=== PATIENT | female | born 1950 | race Caucasian/White ===

== ENCOUNTER → 2016-12-20 | Outpatient (CLI) | payer BC ==
[~2016-12-20] MED LIST: ASCO1CAP3 PO; ASPI81TA28 PO; ATEN50TA PO; CHOL20009 PO; CHOLTAB3 PO; COEN100C7 PO; FLUC200T PO; GABA1CAP PO; GINK60TA2 PO; LEVO75TA5 PO; MIRT15TA3 PO; MULT-916 PO; OMEG10007 PO; OMEP20CA9 PO; SIMV20TA2 PO; TNR50 PO; ZNTT/150 PO
--- NOTE | 2016-12-20 13:24 | MAMMOGRAPHY REPORT ---
UNILATERAL LEFT DIGITAL DIAGNOSTIC MAMMOGRAM TOMOSYNTHESIS WITH CAD AND TARGETED LEFT ULTRASOUND: CLINICAL HISTORY: 66-year-old 1 presents for follow-up of a probably benign cystic-appearing mass in the 5:30 left breast. History of previous left breast surgery and atypical ductal hyperplasia. TECHNIQUE: Left CC and MLO 2-D digital and tomosynthesis images, spot magnification left CC and ML views were obtained. Current study was also evaluated with a Computer Aided Detection (CAD) system. COMPARISON: Comparison is made to exams dated: 06/02/2016 ultrasound, 06/02/2016 mammogram, 05/24/2016 m ammogram, 12/31/2014 mammogram, 12/25/2013 mammogram, and 07/19/2012 mammogram - [facility] enter. BREAST COMPOSITION: There are scattered areas of fibroglandular density in the left breast. FINDINGS: A linear scar marker overlies the upper inner left breast. There are a few benign rim emily cifications. The 5.6 mm lobulated mass in the anterior left breast is no longer clearly identified. No obvious new mass or architectural distortion is identified. However, there are possible new mi crocalcifications in the upper outer quadrant for which additional spot magnification views were obt ained. On the spot magnification views, there are 2 adjacent clusters of similar appearing faint amorphous microcalcifications in the upper outer far posterior left breast. The larger posterior cluster bill ures 6.3 mm and the smaller anterior cluster measures approximately 3 mm. These are not definitely seen on prior mammograms and are therefore indeterminate. Definitive characterization with a stereo tactic guided biopsy is recommended. Targeted ultrasound was performed in the area of previously identified complicated cyst in the 5:30 left breast, as well as in an area of palpable lump pointed out by the patient (12:00 and 11:00 left breast, 5 cm from the nipple). In the area of palpable lump, normal fibroglandular tissue is seen without a discrete solid or cystic mass. In the 5:30 left breast, 2 cm from the nipple, a complicat ed cyst is no longer identified. However there is an ill-defined hypoechoic lesion that is differen t in texture from the adjacent fat lobules. No significant increased vascularity or definite ceasar ectural distortion. It measures approximately 6.9 x 4.7 mm. Although this could represent focal fi brocystic changes, it is indeterminate and definitive characterization with ultrasound guided core b iopsy is recommended. IMPRESSION: ACR BI-RADS CATEGORY 4B: INTERMEDIATE SUSPICION FOR MALIGNANCY, TARGETED ULTRASOUND ACR BI-RADS CATEGORY 4B: INTERMEDIATE SUSPICION FOR MALIGNANCY 1. Left breast stereotactic guided biopsy is recommended for new clustered faint amorphous microcal cifications in the upper outer posterior breast. 2. Ultrasound-guided core needle biopsy is recommended in the 5:30 left breast for an ill-defined h ypoechoic 6.9 mm mass seen on ultrasound. These results and recommendations were discussed with the patient at the time of the exam. She tent atively scheduled the left breast biopsies prior to leaving our department. Approximately 10% of breast cancers are not detected with mammography. A negative mammographic repor t should not delay biopsy if a clinically suggestive mass is present. Yolanda Hummel M.D. ay/:12/20/2016 12:42:58 Framing Carpenter: Mary Kim, [facility] letter sent: Abnormal 4/5 BI-RADS Code: ACR BI-RADS Category 4B: Intermediate Suspicion For Malignancy Ultrasound BI-RADS: AC R BI-RADS Category 4B: Intermediate Suspicion For Malignancy
== END | disposition home or self-care (01) ==
LOC: C.MAMM 09:22
PROVIDERS: ATTEND Obstetrics & Gynecology
DX: N63 Unspecified lump in breast (principal); R92.0 Mammographic microcalcification found on diagnostic imaging of breast

== ENCOUNTER → 2017-01-03 | Outpatient (CLI) | payer BC ==
--- NOTE | 2017-01-03 13:42 | Discharge Instructions ---
Discharge Instructions Procedure Procedure Date: Jan 03, 2017. Reason for visit: Left Calcs/Us Core Left Mass. Discharge Discharge Date: Jan 03, 2017. Discharge Diagnosis: post left breast stereotactic guided and ultrasound guided biopsies Instructions Activity Recommendations: Additional Limitations (see below) Return to School/Work: no limitations Recommended Home Diet: No Limitations Provider Instructions: ACTIVITY RECOMMENDATIONS: * No lifting, pushing, pulling or exercising the affected side for three days. RETURN TO SCHOOL/WORK: * You may return to work/school after the procedure, but do not perform any strenuous activities for 24 to 48 hours. MEDICATIONS: * Tylenol (two 325 mg) every four to six hours if needed for mild pain (if not allergic to Tylenol). DIET: * Resume previous diet. SPECIAL CARE INSTRUCTIONS: * Keep biopsy site dry for 24 hours. May shower after 24 hours, but do not soak (bathe) incision. * May remove Tegaderm (plastic patch) tomorrow AFTER showering. * Leave the steri-strips on for one week. Allow the steri-strips to fall off by themselves. If not off after one week, you may remove them. You may place a Bandaid crosswise over the strips, if desired. * Apply ice 10 minutes on and 10 minutes off as needed. * Wear a bra at bedtime to sleep more comfortably for 2-3 days. * Your referring physician should have the results after approximately 5 to 7 business days. * Call for unusual bleeding, fever, drainage, etc or if you have any questions call [phone] during normal business hours or after hours call Dr Hummel, . FOLLOW UP VISIT: Follow-up with Referring Physician as scheduled. Allergies Coded Allergies: Carbamazepine (Verified Allergy, Mild, rash, 11/17/15) Phenytoin (Verified Allergy, Mild, RASH, 11/17/15) Codeine (Verified Allergy, Unknown, ITCHY, 11/17/15) Iodine (Verified Allergy, Unknown, RASH, 11/17/15) Leda Ovalle Recommendations: Call your doctor if: * Temperature above 101 degrees * Pain not relieved by pain medicine ordered * There is increased drainage or redness from any incision * You have any unanswered questions or concerns. Your Doctors Instructions noted above were prepared by provider Yolanda Hummel. Patient Signature Section: Patient Instructions Signature Page Randy Tripp Patient (or Guardian) Signature/Date: I have read and understand the instructions given to me by my caregivers. Caregiver/RN/Doctor Signature/Date: The above-named patient and/or guardian has received patient instructions on this date. + Original Patient Signature Page (only) stays with chart. Please make copy for patient.
--- NOTE | 2017-01-03 16:03 | MAMMOGRAPHY REPORT ---
MULTIPLE STEREOTACTIC GUIDED BIOPSIES LEFT BREAST: 01/03/2017 CLINICAL HISTORY: Faint amorphous clustered microcalcifications in the upper outer posterior left br east. Ill-defined hypoechoic lesion in the 5:30 left breast on ultrasound. Patient presented for l eft breast stereotactic guided biopsy and ultrasound-guided core biopsy. Also evaluate the right br east for any possible microcalcifications. COMPARISON: Comparison is made to exams dated: 12/20/2016 mammogram, 06/02/2016 ultrasound, 12/20/2016 ultrasound, 06/02/2016 mammogram, 12/31/2014 mammogram, and 12/25/2013 mammogram - [facility]. PATIENT CONSENT: After explaining the risks, benefits and alternatives of both the stereotactic guid ed biopsy procedure and ultrasound-guided core needle biopsy procedure to the patient, informed cons ent was obtained both verbally and in writing. Specific risks include: Bleeding, infection, punctur e of adjacent structure, nontarget biopsy, sampling error, metal allergy and medication reaction. PROCEDURE DESCRIPTION: A time-out was performed and the left breast was confirmed as the site of bio psy. The patient was placed prone on the stereotactic biopsy table and the breast was placed in CC f rom above compression. A hypo dipper image was obtained that demonstrated the clustered microcalcification s in question. They are amenable to sterotactic biopsy. Then +15 and -15 stereo pair images were obtained. The calcifications were targeted utilizing the coordinates obtained by the computer. The skin was prepped with ChloraPrep. 1% buffered lidocaine with and without epinipherine was administe red as local anesthesia. A small skin incision was made. Through the incision, the needle was inser jenny to the depth determined by the computer. 10 samples were obtained using a [employer] 9-ga uge vacuum-assisted biopsy device. The specimen radiograph demonstrated several client support representative micro calcifications, therefore, a metallic marker was placed at the biopsy site. There was no immediate c omplication. Hemostasis was achieved after several minutes of manual compression. The samples were sent to pathology in an appropriately labeled container, with the specimen containing the majority o f the microcalcifications out and placed into a different container labeled with calcifica tions. Then the patient was brought into the ultrasound room and placed in the supine position. The 5:30 a xis of the left breast was reevaluated with ultrasound, and the ill-defined hypoechoic lesion seen o n the previous exam dated 12/20/2016 was again identified. Additional ChloraPrep was used to cleans e the skin of the inferior left breast. 1% buffered lidocaine with and without epinephrine was admi nistered. A small incision was made in the skin. Through the incision, 3 samples were obtained usi ng a 14-gauge achieve biopsy device. A metallic marker was placed at the biopsy site. Hemostasis w as achieved after approximately 10 minutes of manual compression. The samples were sent to the path ology department in an appropriately labeled container. Postprocedure left CC and MLO 2-D digital and tomosynthesis images were obtained. There is a dumbbe ll-shaped metallic biopsy marker in the upper outer posterior left breast. A large, approximately 4 x 6 cm hematoma is identified at the site of the stereotactic biopsy. No significant hematoma is s een near the ribbon-shaped metallic biopsy marker denoting the site of the ultrasound guided core bi opsy. Additional manual compression was placed in the upper outer quadrant of the breast in the are a of hematoma. The patient was also wrapped with an Stanley bandage as a pressure dressing prior to shyam ving our department. She was instructed not to take aspirin for approximately 2 days. Right CC and MLO 2-D digital and tomosynthesis images were obtained. There are a few benign calcifi cations. However, no new suspicious clustered microcalcifications, new suspicious mass or edi architect ural distortion is seen. Overall, the parenchymal pattern is unchanged compared to prior mammograms . IMPRESSION: STEREOTACTIC GUIDED BIOPSY 1. Status post left breast stereotactic guided biopsy in the upper outer far posterior breast. 2. Status post ultrasound-guided core needle biopsy in the 5:30 left breast. 3. Stable mammographic appearance of the right breast, without mammographic evidence of malignancy. The patient will receive notification of the biopsy results from her referring physician. Yolanda Hummel M.D. ay/:01/03/2017 14:55:39 Laboratory Manager: Mary Kim, [facility]
--- NOTE | 2017-01-03 16:03 | MAMMOGRAPHY REPORT ---
BILATERAL DIGITAL DIAGNOSTIC MAMMOGRAM TOMOSYNTHESIS: 01/03/2017 CLINICAL HISTORY: Status post left breast stereotactic guided biopsy and ultrasound-guided core biop sy. Evaluate for possible microcalcifications in the right breast. Please refer to the report from left breast stereotactic guided biopsy performed at the same time fo r full detail. IMPRESSION: POST PROCEDURE IMAGING FOR MARKER PLACEMENT Please refer to the report from left breast stereotactic guided biopsy performed at the same time fo r full detail. Approximately 10% of breast cancers are not detected with mammography. A negative mammographic repor t should not delay biopsy if a clinically suggestive mass is present. Yolanda Hummel M.D. ay/:01/03/2017 14:49:03 Lot Attendant: Mary Kim, [facility] BI-RADS Code: Post Procedure Imaging For Marker Placement
--- NOTE | 2017-01-03 16:03 | MAMMOGRAPHY REPORT ---
ULTRASOUND GUIDED BIOPSY: 01/03/2017 CLINICAL HISTORY: Status post left breast stereotactic guided biopsy in the upper outer quadrant, an d ultrasound guided core needle biopsy in the 5:30 axis. Please refer to the report from left breast stereotactic guided biopsy performed at the same time fo r full detail. IMPRESSION: ULTRASOUND GUIDED BIOPSY Please refer to the report from left breast stereotactic guided biopsy performed at the same time fo r full detail. Yolanda Hummel M.D. ay/:01/03/2017 14:56:30 Guillotine Trimmer: Mary Kim, [facility]
== END | disposition home or self-care (01) ==
LOC: C.MAMM 12:27
PROVIDERS: ATTEND Obstetrics & Gynecology
DX: N60.12 Diffuse cystic mastopathy of left breast (principal); R92.0 Mammographic microcalcification found on diagnostic imaging of breast

== ENCOUNTER → 2017-01-27 | Outpatient (CLI) | payer BC ==
[2017-01-27 12:09] LABS: BASO % 0.4 %; BASO ABS # 0.03 K/uL (0-0.2); COMPLETE YES; EOS % 0.6 %; HEMATOCRIT 36.3 % (37-47); IG% 0.1 %; LYMPH % 29.2 %; LYMPH ABS # 2.05 K/uL (1.2-3.4); MEAN CORPUSCULAR HEMOGLOBIN 30.8 pg (25-34); MEAN CORPUSCULAR HGB CONC 33.9 g/dl (32-36); MONO % 9.8 %; NEUT % 59.9 %; PLATELET COUNT 192 K/uL (130-400); RED BLOOD COUNT 3.99 M/uL (4.2-5.4); WHITE BLOOD COUNT 7.01 K/uL (4.8-10.8)
[2017-01-27 13:01] LABS: BLOOD UREA NITROGEN 22 mg/dl (7-18); BUN/CREATININE RATIO 31.4 (10-20); CALCIUM 9.1 mg/dl (8.5-10.1); CARBON DIOXIDE 29 mmol/L (21-32); CHLORIDE 106 mmol/L (98-107); CREATININE 0.69 mg/dl (0.60-1.20); GLUCOSE 124 mg/dl (70-99); POTASSIUM 3.8 mmol/L (3.5-5.1); SODIUM 142 mmol/L (136-145)
== END | disposition home or self-care (01) ==
LOC: C.LAB 11:17
PROVIDERS: ATTEND Orthopaedic Surgery
DX: M75.112 Incomplete rotator cuff tear or rupture of left shoulder, not specified as traumatic (principal)

== ENCOUNTER → 2017-02-16 | Day surgery (SDC) | payer BC ==
[2017-02-01 14:27] VITALS: Ht 154.9 cm; Wt 45.5 kg
[~2017-02-16] VITALS: Ht 154.9 cm; Wt 45.5 kg
[~2017-02-16] MED LIST changes: +ATROPINE SULFATE 0.1 MG/ML 5ML SYR IV PRN; +BUPIVACAINE/EPINEPHRINE 0.25% 1:200,000 30 ML VIAL ONE; +CEFAZOLIN 1000MG/55 ML D5W IV SCH; -CHOLTAB3 PO; +DEXAMETHASONE SOD INJ 4 MG/ML VIAL IV PRN; +DEXAMETHASONE SOD INJ 4 MG/ML VIAL ONE; +EpHEDrine SULFATE INJ 50 MG/ML AMP IV PRN; +EpINEphrine INJ 1MG/ML AMP 1 MG/ML AMP ONE; +FENTANYL CITRATE INJ 50 MCG/1 ML 2 ML VIAL IV PRN; +FENTANYL CITRATE INJ 50 MCG/1 ML 2 ML VIAL ONE; +GLYCOPYRROLATE INJ 0.2 MG/ML VIAL ONE; +KETOROLAC TROMETHAMINE 15 MG/ML VIAL IV. PRN; +KETOROLAC TROMETHAMINE 30 MG/ML VIAL IV. PRN; +LABETALOL HCL IV 5 MG/ML 20ML IV PRN; +LACTATED RINGER'S 1000ML 1,000 ML IV SCH; +LIDOCAINE HCL 1% MPF 2 ML VIAL ONE; +LIDOCAINE HCL 2% 2 ML VIAL (20MG/ML) ONE; +METOCLOPRAMIDE HCL INJ 5 MG/ML 2 ML VIAL IV PRN; +MIDAZOLAM HCL 1 MG/ML 2ML VIAL ONE; -MIRT15TA3 PO; +MoRPHine SULFATE 10 MG/ML CARP/VIAL IV PRN; -OMEP20CA9 PO; +ONDANSETRON INJ 2 MG/ML 2 ML VIAL IV PRN; +ONDANSETRON INJ 2 MG/ML 2 ML VIAL ONE; +OXYCODONE/ACETAMINOPHEN 5-325 TAB PO PRN; +PHENYLEPHRINE 100MCG/ML 5ML SYR IV PRN; +PROPOFOL IV EMULSION 10 MG/ML 20 ML VIAL IV ONE; +ROPIVACAINE 0.5% 5 MG/ML 30 ML VIAL ONE; +SODIUM CHLORIDE 0.9% 1000ML 1,000 ML IV SCH
--- NOTE | 2017-02-16 07:26 | History & Physical Bridge - SC ---
H&P Re-Evaluation Bridge Note: I have examined the patient, reviewed the History & Physical and in the interval since the performance of the History & Physical I have noted the following changes of clinical significance: No changes noted
--- NOTE | 2017-02-16 09:59 | Discharge Instructions-SurgCtr ---
Discharge Instructions Date of Service Feb 16, 2017. Visit Reason for Visit: Left Shoulder Nontraumatic Rotator Cuff Tear Discharge Discharge Diagnosis / Problem: SAME ABOVE Discharge Goals Goal(s): Decrease discomfort, Improve function Medications Stopped Medications Name(s): Coq10, fish oil, and Ginko Biloba last doses 02/09/17 Restart Stopped Medication(s): MAY RESTART 02/17/2017 Activity Recommendations Activity Limitations: as noted below Lifting Limitations: gradually increase as tolerated Exercise/Sports Limitations: gradually increase as tolerated Shower/Bathe: tomorrow Anesthesia . Post Anesthesia Instructions: If you have had General Anesthesia or IV Sedation: * Do not drive today. * Resume driving when surgeon permits. * Do not make important decisions or sign legal documents today. * Call surgeon for: 1. Temperature elevations greater than 101 degrees F. 2. Uncontrollable pain. 3. Excessive bleeding. 4. Persistent nausea and vomiting. 5. Medication intolerance (nausea, vomiting or rash). * For nausea and vomiting use only clear liquids such as: tea, soda, bouillon until nausea subsides, then gradually increase diet as tolerated. * If you have any concerns or questions, call your surgeon's office. If physician is unavailable and it is an emergency, call 911 or go to the nearest emergency room. . Instructions / Follow-Up Instructions / Follow-Up MEDICATIONS: * Resume previous medications unless instructed otherwise by your surgeon. * Always take pain medication on a full stomach or with food to avoid upset stomach. * Do not drink alcohol or drive while taking narcotics. * Ibuprofen or Tylenol may be taken if narcotic not needed. SPECIAL CARE INSTRUCTIONS: __ None _X_ Keep extremity elevated and iced x 48 hours; apply ice 20-30 minutes 8-10 times/day. May remove at night. _X_ Sling (WEAR NEEDED FOR COMFORT) __24 hrs/day __ Remove at night __ Shoulder Immobilizer __ 24 hrs/day __ Remove at night _X_ Dressing __ Maintain until seen in office, may shower with plastic over site _X_ Remove dressings in 24-48 hours and then may shower _X_ Cover incisions with band-aids after showering __ Do not remove steri-strips Call physician if chills or temperature rises above 102 degrees or pain unrelieved by prescribed pain medications at . . Diet Recommendations Home Diet: no limitations Fluid Restriction: None Procedures Procedures Performed: Left Shoulder Arthroscopy, Acromioplasty Pending Studies Studies pending at discharge: no Work Instructions Return To Work: after follow-up Medical Emergencies . Who to Call and When: Medical Emergencies: If at any time you feel your situation is an emergency, please call 911 immediately. . Non-Emergent Contact Non-Emergency issues call your: Primary Care Provider Call Non-Emergent contact if: you have a fever, temperature is above 101.5 . . "Provider Documentation" section prepared by Anshul Bennett.
--- NOTE | 2017-02-16 10:00 | [facility] Post Operative Brief Note ---
Immediate Operative Summary Operative Date Feb 16, 2017. Pre-Operative Diagnosis Left Shoulder Non-Traumatic Rotator Cuff Tear Post-Operative Diagnosis Same Procedure(s) Performed Left Shoulder Arthroscopy, Acromioplasty Surgeon Dr. Bell Printed Circuit Board Pcb Designer Surgeon(s) Gladys Bennett PA-C Estimated Blood Loss Minimal Findings as above Specimens None Complication(s) None Disposition Recovery Room / PACU
--- NOTE | 2017-02-16 11:00 | Anesthesia Progress Nt - [facility] ---
Anesthesia Post Op Note Date & Time Feb 16, 2017 at 11:00 Vital Signs Pain Intensity: 1 Vital Signs Past 12 Hours Date Time Temp Pulse Resp B/P Pulse Ox O2 Delivery O2 Flow Rate FiO2 02/16/17 10:35 99 20 140/89 97 02/16/17 10:35 36.5 02/16/17 10:33 93 23 95 02/16/17 10:33 94 23 02/16/17 10:30 135/86 02/16/17 10:28 95 19 02/16/17 10:28 95 19 98 02/16/17 10:25 139/69 02/16/17 10:23 94 13 100 02/16/17 10:23 92 13 02/16/17 10:19 140/83 02/16/17 10:18 93 17 100 02/16/17 10:18 93 17 02/16/17 10:15 135/82 02/16/17 10:13 90 11 100 02/16/17 10:13 90 11 02/16/17 10:10 136/89 02/16/17 10:08 90 10 99 02/16/17 10:08 91 10 02/16/17 10:05 134/85 02/16/17 10:03 93 13 100 02/16/17 10:03 94 13 02/16/17 10:00 134/76 02/16/17 09:58 101 17 02/16/17 09:58 97 17 98 02/16/17 09:57 36.2 100 14 135/80 100 Diffusion Mask 6 02/16/17 09:06 72 02/16/17 09:06 73 10 98 02/16/17 09:05 136/78 02/16/17 09:01 66 02/16/17 09:01 67 17 100 02/16/17 09:00 130/77 02/16/17 08:56 70 21 100 02/16/17 08:56 70 02/16/17 08:55 146/81 02/16/17 08:53 62 6 100 02/16/17 08:53 61 02/16/17 08:50 146/75 02/16/17 08:48 65 17 100 02/16/17 08:48 65 02/16/17 08:45 138/84 02/16/17 08:43 68 23 100 02/16/17 08:43 68 02/16/17 08:40 143/79 02/16/17 08:38 67 15 100 02/16/17 08:38 66 02/16/17 08:35 142/80 02/16/17 08:33 69 0 100 02/16/17 08:33 66 02/16/17 08:30 124/75 02/16/17 08:28 69 22 100 02/16/17 08:28 69 02/16/17 08:27 138/71 02/16/17 08:23 65 02/16/17 08:23 65 20 100 02/16/17 08:18 70 18 100 02/16/17 08:18 69 02/16/17 08:15 142/71 02/16/17 08:13 60 02/16/17 08:13 60 10 100 02/16/17 08:10 153/75 02/16/17 08:08 59 02/16/17 08:08 59 10 100 02/16/17 08:05 158/82 02/16/17 08:03 67 27 100 02/16/17 08:03 68 02/16/17 08:00 154/79 02/16/17 07:58 69 19 100 02/16/17 07:58 69 19 02/16/17 07:57 152/89 02/16/17 07:08 36.7 65 16 140/68 100 Room Air Notes Mental Status: alert / awake / arousable, participated in evaluation Pt Amnestic to Procedure: Yes Nausea / Vomiting: adequately controlled Pain: adequately controlled Airway Patency, RR, SpO2: stable & adequate BP & HR: stable & adequate Hydration State: stable & adequate Anesthetic Complications: no major complications apparent
[2017-02-16 11:03] VITALS: TEMP 37.3
[2017-02-16 11:17] VITALS: BP 153/89; PULSE 90; O2SAT 99
--- NOTE | 2017-02-16 12:04 | OPERATIVE REPORT ---
DATE OF OPERATION: 02/16/2017 PREOPERATIVE DIAGNOSES: Severe external impingement and possible partial thickness rotator cuff tear of the left shoulder. POSTOPERATIVE DIAGNOSIS: Severe external impingement without rotator cuff tear. PROCEDURE: Left shoulder diagnostic arthroscopy with limited debridement and acromioplasty. SURGEON: Dr. Zachary Bell. BANDER HAND: Jerald Bennett PA-C, whose assistance was necessary for positioning the arm and helping with instrumentation. ANESTHESIA: General with left interscalene nerve block. COMPLICATIONS: None. CONDITION: Stable to PACU. INDICATIONS: Randy is a pleasant 66-year-old female who has been having several year history of increasing shoulder pain, more severe over the last 3 months. MRI was a poor quality MRI, but showed external impingement with possible small cuff tear. After failing conservative treatment, she elected to undergo arthroscopy. DESCRIPTION OF PROCEDURE: On 02/16/2017, she arrived at [facility] for the above procedure. She was seen in the preoperative holding area and the operative extremity was identified and signed. She was given a preoperative antibiotic, taken back to the operating room, laid on the table in supine position and put under general anesthesia. She was then put into the beachchair position. The left shoulder was prepped and draped in sterile fashion. Time-out was done and the patient and operative extremity was properly identified. On preoperative physical examination, she had full range of motion and no signs of adhesive capsulitis. A scope was placed in the posterior portal. Diagnostic arthroscopy showed no cartilage damage to the humeral head or the glenoid. There was still good tension on the entire rotator cuff and the supraspinatus, infraspinatus, teres minor and subscapularis were all checked and intact. The biceps tendon went through a normal size biceps jarrell mechanism. There was no evidence of superior labral tear. The scope was then put into the subacromial space. A lateral portal was made. A shaver was used to do a complete subacromial and subdeltoid bursectomy. An ablator was used to tease the coracoacromial ligament off the undersurface of the acromion and a 5-0 sally was used to complete an acromioplasty of a Bigliani type 2 acromion. A shaver was used to remove any excess debris. The bursal side of the rotator cuff was then examined extensively without evidence of tear. Final diagnostic arthroscopy showed no additional pathology. Arthroscopic instruments were removed from the shoulder. Portal sites were closed with 3-0 nylon. She was placed in a soft dressing and regular arm sling. She was then extubated, transferred to a litter and taken to the postanesthesia care unit in stable condition. She tolerated the procedure well. I attest to the content of the Intraoperative Record and any orders documented therein. Any exceptions are noted below. RADHA
== END | disposition home or self-care (01) ==
LOC: X.SURG 06:53
PROVIDERS: ATTEND Orthopaedic Surgery
DX: M75.102 Unspecified rotator cuff tear or rupture of left shoulder, not specified as traumatic (principal); M75.42 Impingement syndrome of left shoulder; E07.9 Disorder of thyroid, unspecified; Z82.49 Family history of ischemic heart disease and other diseases of the circulatory system; Z88.5 Allergy status to narcotic agent; Z91.041 Radiographic dye allergy status

== ENCOUNTER → 2017-05-25 | Outpatient (CLI) | payer BC ==
[~2017-05-25] MED LIST changes: -ATROPINE SULFATE 0.1 MG/ML 5ML SYR IV PRN; -BUPIVACAINE/EPINEPHRINE 0.25% 1:200,000 30 ML VIAL ONE; -CEFAZOLIN 1000MG/55 ML D5W IV SCH; -DEXAMETHASONE SOD INJ 4 MG/ML VIAL IV PRN; -DEXAMETHASONE SOD INJ 4 MG/ML VIAL ONE; -EpHEDrine SULFATE INJ 50 MG/ML AMP IV PRN; -EpINEphrine INJ 1MG/ML AMP 1 MG/ML AMP ONE; -FENTANYL CITRATE INJ 50 MCG/1 ML 2 ML VIAL IV PRN; -FENTANYL CITRATE INJ 50 MCG/1 ML 2 ML VIAL ONE; -FLUC200T PO; -GLYCOPYRROLATE INJ 0.2 MG/ML VIAL ONE; -KETOROLAC TROMETHAMINE 15 MG/ML VIAL IV. PRN; -KETOROLAC TROMETHAMINE 30 MG/ML VIAL IV. PRN; -LABETALOL HCL IV 5 MG/ML 20ML IV PRN; -LACTATED RINGER'S 1000ML 1,000 ML IV SCH; -LIDOCAINE HCL 1% MPF 2 ML VIAL ONE; -LIDOCAINE HCL 2% 2 ML VIAL (20MG/ML) ONE; -METOCLOPRAMIDE HCL INJ 5 MG/ML 2 ML VIAL IV PRN; -MIDAZOLAM HCL 1 MG/ML 2ML VIAL ONE; -MoRPHine SULFATE 10 MG/ML CARP/VIAL IV PRN; -ONDANSETRON INJ 2 MG/ML 2 ML VIAL IV PRN; -ONDANSETRON INJ 2 MG/ML 2 ML VIAL ONE; -OXYCODONE/ACETAMINOPHEN 5-325 TAB PO PRN; -PHENYLEPHRINE 100MCG/ML 5ML SYR IV PRN; -PROPOFOL IV EMULSION 10 MG/ML 20 ML VIAL IV ONE; -ROPIVACAINE 0.5% 5 MG/ML 30 ML VIAL ONE; -SODIUM CHLORIDE 0.9% 1000ML 1,000 ML IV SCH
--- NOTE | 2017-05-26 12:10 | MAMMOGRAPHY REPORT ---
BILATERAL DIGITAL SCREENING MAMMOGRAM TOMOSYNTHESIS WITH CAD: 05/25/2017 CLINICAL HISTORY: Routine screening. Patient has no complaints. TECHNIQUE: Breast tomosynthesis in addition to standard 2D mammography was performed. Current study was also evaluated with a Computer Aided Detection (CAD) system. COMPARISON: Comparison is made to exams dated: 01/03/2017 mammogram, 12/20/2016 mammogram, 06/02/2016 [place] mogram, 05/24/2016 mammogram, 12/31/2014 mammogram, and 12/25/2013 mammogram - [facility]. BREAST COMPOSITION: There are scattered areas of fibroglandular density in both breasts. FINDINGS: No suspicious masses, calcifications, or areas of architectural distortion are noted in ei ther breast. There has been no significant interval change compared to prior exams. There are post b iopsy changes in the left upper outer quadrant including a surgical clip and mild density and associa jenny architectural distortion from prior benign stereotactic biopsy. A biopsy marker clip is also not ed in the left lower inner quadrant. A linear scar marker denotes a scar on the left medial breast. Scattered bilateral benign-appearing calcifications are not significantly changed. IMPRESSION: ACR BI-RADS CATEGORY 2: BENIGN There is no mammographic evidence of malignancy. A 1 year screening mammogram is recommended. The pa tient will receive written notification of the results. Approximately 10% of breast cancers are not detected with mammography. A negative mammographic report should not delay biopsy if a clinically suggestive mass is present. Radha Crane M.D. ah/:05/25/2017 15:57:06 [place] Foreman: Luci Cramer RT(R)(Connor)(RONA), [facility] letter sent: Normal 1/2 BI-RADS Code: ACR BI-RADS Category 2: Benign
== END | disposition home or self-care (01) ==
LOC: C.MAMM 08:07
PROVIDERS: ATTEND Obstetrics & Gynecology
DX: Z12.31 Encounter for screening mammogram for malignant neoplasm of breast (principal)

== ENCOUNTER → 2017-08-14 | Outpatient (CLI) | payer BC ==
[2017-08-14 13:26] LABS: BASO % 0.9 %; BASO ABS # 0.05 K/uL (0-0.2); COMPLETE YES; EOS % 2.1 %; HEMATOCRIT 35.8 % (37-47); LYMPH ABS # 2.18 K/uL (1.2-3.4); MEAN CELL VOLUME 90.6 fL (80-100); MEAN CORPUSCULAR HEMOGLOBIN 30.9 pg (25-34); MEAN CORPUSCULAR HGB CONC 34.1 g/dl (32-36); MEAN PLATELET VOLUME 10.2 fL (7.4-10.4); MONO % 6.3 %; NEUT % 51.7 %; PLATELET COUNT 227 K/uL (130-400); RED BLOOD COUNT 3.95 M/uL (4.2-5.4); WHITE BLOOD COUNT 5.59 K/uL (4.8-10.8)
[2017-08-14 13:33] LABS: BLOOD UREA NITROGEN 22 mg/dl (7-18); BUN/CREATININE RATIO 34.3 (10-20); CALCIUM 9.5 mg/dl (8.5-10.1); CARBON DIOXIDE 29 mmol/L (21-32); CHLORIDE 106 mmol/L (98-107); CREATININE 0.65 mg/dl (0.60-1.20); GLUCOSE 93 mg/dl (70-99); POTASSIUM 4.2 mmol/L (3.5-5.1); SODIUM 140 mmol/L (136-145)
== END | disposition home or self-care (01) ==
LOC: C.LABBC 10:31
PROVIDERS: ATTEND Orthopaedic Surgery
DX: M25.512 Pain in left shoulder (principal)

== ENCOUNTER → 2017-09-14 | Day surgery (SDC) | payer BC ==
[2017-08-25 08:47] VITALS: Ht 154.9 cm; Wt 46.4 kg
[~2017-09-14] VITALS: Ht 154.9 cm; Wt 46.4 kg
[~2017-09-14] MED LIST changes: +BUPIVACAINE 0.5 % 5 MG/1 ML MPF 30ML VIAL ONE; +FENTANYL CITRATE INJ 50 MCG/1 ML 2 ML VIAL ONE; +LACTATED RINGER'S 1000ML 1,000 ML IV SCH; +LIDOCAINE HCL 2% 2 ML VIAL (20MG/ML) ONE; +METHYLPREDNISOLONE ACETATE 80 MG/ML VIAL ONE; +MIDAZOLAM HCL 1 MG/ML 2ML VIAL ONE; +ONDANSETRON INJ 2 MG/ML 2 ML VIAL IV PRN; +ONDANSETRON INJ 2 MG/ML 2 ML VIAL ONE; +PROPOFOL IV EMULSION 10 MG/ML 20 ML VIAL IV ONE; +ROPIVACAINE 0.5% 5 MG/ML 30 ML VIAL ONE; +SODIUM CHLORIDE 0.9% 1000ML 1,000 ML IV SCH
--- NOTE | 2017-09-14 13:32 | Discharge Instructions-[facility]Ctr ---
Discharge Instructions Date of Service Sep 14, 2017. Visit Reason for Visit: Left Shoulder Adhesive Capsulitis, Pain Discharge Discharge Diagnosis / Problem: SAME ABOVE Discharge Goals Goal(s): Decrease discomfort, Improve function Medications Stopped Medications Name(s): stopped all herbal supplements 1 week ago Restart Stopped Medication(s): MAY RESTART 09/14/2017 Activity Recommendations Activity Limitations: as noted below Lifting Limitations: gradually increase as tolerated Exercise/Sports Limitations: gradually increase as tolerated Driving or Machine Use: resume 1 day after discharge Anesthesia . Post Anesthesia Instructions: If you have had General Anesthesia or IV Sedation: * Do not drive today. * Resume driving when surgeon permits. * Do not make important decisions or sign legal documents today. * Call surgeon for: 1. Temperature elevations greater than 101 degrees F. 2. Uncontrollable pain. 3. Excessive bleeding. 4. Persistent nausea and vomiting. 5. Medication intolerance (nausea, vomiting or rash). * For nausea and vomiting use only clear liquids such as: tea, soda, bouillon until nausea subsides, then gradually increase diet as tolerated. * If you have any concerns or questions, call your surgeon's office. If physician is unavailable and it is an emergency, call 911 or go to the nearest emergency room. . Instructions / Follow-Up Instructions / Follow-Up MEDICATIONS: * Resume previous medications unless instructed otherwise by your surgeon. * Always take pain medication on a full stomach or with food to avoid upset stomach. * Do not drink alcohol or drive while taking narcotics. * Ibuprofen or Tylenol may be taken if narcotic not needed. SPECIAL CARE INSTRUCTIONS: __ None _X_ Keep extremity elevated and iced x 48 hours; apply ice 20-30 minutes 8-10 times/day. May remove at night. _X_ Sling (WEAR FOR COMFORT ONLY) __24 hrs/day __ Remove at night __ Shoulder Immobilizer __ 24 hrs/day __ Remove at night __ Dressing __ Maintain until seen in office, may shower with plastic over site __ Remove dressings in 24-48 hours and then may shower __ Cover incisions with band-aids after showering __ Do not remove steri-strips Call physician if chills or temperature rises above 102 degrees or pain unrelieved by prescribed pain medications at . . Diet Recommendations Home Diet: no limitations Procedures Procedures Performed: Left Shoulder Manipulation Under Anesthesia Pending Studies Studies pending at discharge: no Work Instructions Return To Work: 3 days (WHEN PAIN IS TOLERATED ) Medical Emergencies . Who to Call and When: Medical Emergencies: If at any time you feel your situation is an emergency, please call 911 immediately. . Non-Emergent Contact Non-Emergency issues call your: Primary Care Provider Call Non-Emergent contact if: you have a fever, temperature is above 101.5 . . "Provider Documentation" section prepared by Anshul Bennett. .
--- NOTE | 2017-09-14 13:41 | [facility] Post Operative Brief Note ---
Immediate Operative Summary Operative Date Sep 14, 2017. Pre-Operative Diagnosis Left Shoulder Adhesive Capsulitis Post-Operative Diagnosis Same Procedure(s) Performed Left Shoulder Manipulation Under Anesthesia Surgeon Dr. Bell Welding Process Specialist Surgeon(s) Gladys Bennett PA-C Estimated Blood Loss None Findings as above Specimens None Complication(s) None Disposition Recovery Room / PACU
[2017-09-14 13:49] VITALS: BP 119/69; PULSE 56; O2SAT 100
--- NOTE | 2017-09-14 13:53 | Anesthesia Progress Nt - [facility] ---
Anesthesia Post Op Note Date & Time Sep 14, 2017 at 13:53 Vital Signs Pain Intensity: 0 Vital Signs Past 12 Hours Date Time Temp Pulse Resp B/P (MAP) Pulse Ox O2 Delivery O2 Flow Rate FiO2 09/14/17 13:49 56 16 119/69 (86) 100 Room Air 09/14/17 13:21 36.4 69 16 110/58 (75) 96 Room Air 09/14/17 13:01 62 09/14/17 13:01 62 20 100 09/14/17 13:00 113/72 09/14/17 12:56 66 28 124/70 100 09/14/17 12:56 65 09/14/17 12:51 66 12 100 09/14/17 12:51 65 09/14/17 12:50 154/80 09/14/17 12:46 75 0 98 09/14/17 12:46 70 09/14/17 12:45 121/62 09/14/17 12:41 54 09/14/17 12:41 53 0 120/65 98 09/14/17 12:36 52 09/14/17 12:36 52 0 128/67 99 09/14/17 12:31 54 09/14/17 12:31 54 0 129/62 99 09/14/17 12:26 52 0 100 09/14/17 12:26 53 09/14/17 12:25 122/69 09/14/17 12:21 55 09/14/17 12:21 54 0 117/67 99 09/14/17 12:16 58 09/14/17 12:16 59 0 135/72 99 09/14/17 12:11 59 0 136/65 100 09/14/17 12:11 59 09/14/17 12:06 0 09/14/17 12:01 0 09/14/17 11:57 152/57 09/14/17 11:57 36.6 60 18 152/57 (88) 100 Room Air Notes Mental Status: alert / awake / arousable, participated in evaluation Pt Amnestic to Procedure: Yes Nausea / Vomiting: adequately controlled Pain: adequately controlled Airway Patency, RR, SpO2: stable & adequate BP & HR: stable & adequate Hydration State: stable & adequate Anesthetic Complications: no major complications apparent Doing well. Pain controlled, no n/v. VSS. Ready for d/c
--- NOTE | 2017-09-14 17:41 | OPERATIVE REPORT ---
DATE OF OPERATION: 09/14/2017 PREOPERATIVE DIAGNOSIS: Adhesive capsulitis of the left shoulder. POSTOPERATIVE DIAGNOSIS: Same. PROCEDURE: Manipulation under anesthesia, left shoulder. SURGEON: Dr. Zachary Bell. REVENUE CYCLE ADMINISTRATOR: None. ANESTHESIA: General with a left interscalene nerve block. COMPLICATIONS: None. CONDITION: Stable to PACU. INDICATIONS: Randy is a pleasant 67-year-old female who underwent a subacromial decompression 5 months ago. Unfortunately, postoperatively, she developed adhesive capsulitis. After failing conservative treatment, she elected to undergo manipulation. On 09/14/2017, she arrived at [facility] for the above procedure. She was seen in the preoperative holding area and the operative extremity was identified and signed. She was given an interscalene nerve block then taken back to the operating room, laid on the table in supine position and given general anesthesia. A time-out was done and the patient and operative extremity was properly identified. On preoperative physical examination, she had about 80 degrees of abduction and about 60 degrees of external rotation. A gentle manipulation was done under anesthesia and I was able to get full range of motion of her shoulder. She had full abduction, external and internal rotation and full forward elevation. The shoulder was then injected with 80 mg of Depo-Medrol and 5 mL of Marcaine. She was then placed in a sling and taken to the postanesthesia care unit in stable condition. She tolerated the procedure well. I attest to the content of the Intraoperative Record and any orders documented therein. Any exception s are noted below.
== END | disposition home or self-care (01) ==
LOC: X.SURG 11:30
PROVIDERS: ATTEND Orthopaedic Surgery
DX: M75.02 Adhesive capsulitis of left shoulder (principal); E03.9 Hypothyroidism, unspecified; Z79.899 Other long term (current) drug therapy

== ENCOUNTER → 2018-06-29 | Outpatient (CLI) | payer BC ==
[~2018-06-29] MED LIST changes: -BUPIVACAINE 0.5 % 5 MG/1 ML MPF 30ML VIAL ONE; -FENTANYL CITRATE INJ 50 MCG/1 ML 2 ML VIAL ONE; +GABA-1693 PO; -GABA1CAP PO; -LACTATED RINGER'S 1000ML 1,000 ML IV SCH; -LIDOCAINE HCL 2% 2 ML VIAL (20MG/ML) ONE; -METHYLPREDNISOLONE ACETATE 80 MG/ML VIAL ONE; -MIDAZOLAM HCL 1 MG/ML 2ML VIAL ONE; -ONDANSETRON INJ 2 MG/ML 2 ML VIAL IV PRN; -ONDANSETRON INJ 2 MG/ML 2 ML VIAL ONE; -PROPOFOL IV EMULSION 10 MG/ML 20 ML VIAL IV ONE; +RANI150T85 PO; -ROPIVACAINE 0.5% 5 MG/ML 30 ML VIAL ONE; -SODIUM CHLORIDE 0.9% 1000ML 1,000 ML IV SCH; -ZNTT/150 PO
== END | disposition home or self-care (01) ==
LOC: C.LABSPEC 14:12
PROVIDERS: ATTEND Obstetrics & Gynecology
DX: R35.0 Frequency of micturition (principal)

== ENCOUNTER → 2018-06-29 | Outpatient (CLI) | payer BC | END | disposition home or self-care (01) | LOC: C.PAPS 13:35 | PROVIDERS: ATTEND Obstetrics & Gynecology | DX: Z01.419 Encounter for gynecological examination (general) (routine) without abnormal findings (principal) ==

== ENCOUNTER → 2018-07-18 | Outpatient (CLI) | payer BC ==
--- NOTE | 2018-07-18 13:37 | MAMMOGRAPHY REPORT ---
BILATERAL DIGITAL SCREENING MAMMOGRAM TOMOSYNTHESIS WITH CAD: 07/18/2018 CLINICAL HISTORY: Routine screening. TECHNIQUE: The study was acquired using full field digital technology and interpreted from soft copy. Breast tomosynthesis in addition to standard 2D mammography was performed. Current study was also ev aluated with a Computer Aided Detection (CAD) system. COMPARISON: Comparison is made to exams dated: 05/25/2017 mammogram, 05/24/2016 mammogram, 12/31/2014 ma mmogram, 01/03/2017 mammogram, 12/25/2013 mammogram, and 07/19/2012 mammogram - [facility] ter. BREAST COMPOSITION: There are scattered areas of fibroglandular density in both breasts. FINDINGS: Linear scar markers overlie each breast. There are stable metallic biopsy marker clips in the left breast. Scattered benign rounded rim calcifications. No suspicious mass, architectural dist ortion or cluster of microcalcifications is seen. IMPRESSION: ACR BI-RADS CATEGORY 1: NEGATIVE There is no mammographic evidence of malignancy. A 1 year screening mammogram is recommended.( 019) The patient will receive written notification of the results. Some breast cancers are not detected with mammography. A negative mammographic report should not tiffani y biopsy if a clinically suggestive mass is present. Yolanda Hummel M.D. ay/:07/18/2018 09:11:30 Store Shopper: RT Simba(Jones)(M), [facility] letter sent: Normal 1/2 BI-RADS Code: ACR BI-RADS Category 1: Negative
== END | disposition home or self-care (01) ==
LOC: C.MAMM 08:46
PROVIDERS: ATTEND Obstetrics & Gynecology
DX: Z12.31 Encounter for screening mammogram for malignant neoplasm of breast (principal)

== ENCOUNTER 2023-01-27 05:20 | Observation (INO) ==
--- NOTE | 2023-01-02 09:19 | PAT Medication Instructions ---
Medication Instructions Date of Service January 02, 2023 Home Medications Medication Instructions Recorded meloxicam 15 mg tablet 15 mg PO DAILY #30 tabs 10/05/22 estradiol 0.01% (0.1 mg/gram) 0.5 g vaginal 2XWK #42.5 grams 10/06/22 vaginal cream aspirin 81 mg tablet,delayed release (Adult Low Dose Aspirin) 162 mg PO PM atenolol 50 mg tablet 50 mg PO .COMPLEX cholecalciferol (vitamin D3) 1 dose PO QAM coenzyme Q10 [Co Q-10] 100 mg PO HS flaxseed oil 1 dose PO BID gabapentin 100 mg capsule 200 mg PO PM ginkgo biloba [Ginkoba] 1 dose PO TID levothyroxine 75 mcg tablet (Synthroid) 75 mcg PO QAM lutein 1 dose PO QAM omega-3 fatty acids [Fish Oil Concentrate] 1 dose PO BID simvastatin 10 mg tablet 10 mg PO QPM turmeric 1 dose PO TID meloxicam 15 mg tablet 15 mg PO DAILY estradiol 0.01% (0.1 mg/gram) vaginal cream 0.5 g vaginal 2XWK ascorbic acid (vitamin C) 500 mg tablet (Vitamin C) 500 mg PO BID glucosamine sulf dipot chlr,msm,chond 550 mg-C 30 mg-melinda 1 mg capsule (Glucosamine Chondroitin) 1 cap PO TID multivitamin 1 tab PO QAM ASK your surgeon for instructions meloxicam 15 mg tablet 15 mg PO DAILY ASK your prescriber and surgeon aspirin 81 mg tablet,delayed release (Adult Low Dose Aspirin) 162 mg PO PM STOP taking 2 weeks before surgery (or as soon as possible if surgery is within 2 weeks) coenzyme Q10 [Co Q-10] 100 mg PO HS flaxseed oil 1 dose PO BID ginkgo biloba [Ginkoba] 1 dose PO TID lutein 1 dose PO QAM omega-3 fatty acids [Fish Oil Concentrate] 1 dose PO BID turmeric 1 dose PO TID glucosamine sulf dipot chlr,msm,chond 550 mg-C 30 mg-melinda 1 mg capsule (Glucosamine Chondroitin) 1 cap PO TID STOP taking 24 hours before surgery estradiol 0.01% (0.1 mg/gram) vaginal cream 0.5 g vaginal 2XWK DO NOT take the morning of surgery cholecalciferol (vitamin D3) 1 dose PO QAM ascorbic acid (vitamin C) 500 mg tablet (Vitamin C) 500 mg PO BID multivitamin 1 tab PO QAM Take morning of surgery With a small sip of water, OTHERWISE NOTHING TO EAT OR DRINK AFTER MIDNIGHT: atenolol 50 mg tablet 50 mg PO .COMPLEX levothyroxine 75 mcg tablet (Synthroid) 75 mcg PO QAM Take evening before surgery atenolol 50 mg tablet 50 mg PO .COMPLEX gabapentin 100 mg capsule 200 mg PO PM simvastatin 10 mg tablet 10 mg PO QPM ascorbic acid (vitamin C) 500 mg tablet (Vitamin C) 500 mg PO BID Other Notes If you have any questions please call us at [phone] or [phone] or or [phone]
--- NOTE | 2023-01-04 11:18 | Anesthesiology Consultation ---
Date of Service January 04, 2023 Assessment & Plan (1) Encounter for pre-operative examination: - awaiting PCP clearance. PAT testing and optimization note to be faxed to their office. Pt made aware at PAT office. Surgeon's office made aware. - pt notes sensation of enlarged thyroid with occasional associated dysphagia with large pills, denies choking. She was advised to contact her PCP. Pre-op CXR demonstrates 7 mm nodular density which projects over the thoracic spine on lateral projection and the mamie on PA projection. This finding is low suspicion and may be within the bone. However, a pulmonary nodule would be difficult to exclude. Nonemergent chest CT is recommended for further evaluation and leftward deviation of the trachea the level the thoracic inlet. This can also be assessed on follow-up chest CT. - cardiology 12/07/22 [facility]: "...left bundle-branch block. Clinically, she states that she feels great. Her only complaint is that of her right knee which she knows she needs to have replaced. Cardiac-gong though she denies any significant chest pain, shortness of breath, palpitations, lightheadedness, dizziness or syncope...does increase her risk for the need of possible pacemaker placement in the future but given the fact that her stress test was nonischemic and her echo confirmed that she had normal wall motion no further testing or intervention is necessary at this time. Given the left bundle along with her mitral regurgitation I would like to see her back here on an annual basis but no medication changes will be made today...encouraged her to get back to exercising once her knee allows her to. In terms of her preop risk assessment she was counseled that place her as a low risk for any adverse perioperative cardiovascular event with the risk being approximately less than 1%...no further cardiac testing intervention would further lower that risk...she is accepting of that risk and wishes to proceed with knee surgery...no need to delay from a cardiac standpoint..." - outpatient joint pending PCP clearance. Chart Review Chart Review: Pending: Refer to Additional Notes / Consult section and Patient seen in Pre Admission Testing Teaching & Discussion Pre-Anesthesia Teaching/Discussion Notes: Instructed NPO after midnight before surgery, except medications with 15 cc of water. Medication instructions provided according to the PAT guidelines. History Surgery Operation Date: 01/27/23 07:00 Proposed Procedures p Right Total Knee Arthroplasty - Zachary Bell, Height/Weight Height: 5 ft Weight: 48.7 kg Allergies Allergy/AdvReac Type Severity Reaction Status Date / Time carbamazepine Allergy Intermediate rash Verified 12/30/22 13:56 codeine Allergy Intermediate ITCHY Verified 12/30/22 13:56 iodine Allergy Intermediate RASH, hives Verified 01/04/23 11:32 phenytoin Allergy Intermediate RASH Verified 12/30/22 13:56 povidone-iodine Allergy Unknown "RASH" Verified 12/30/22 13:56 cortisone AdvReac Unknown FACIAL Verified 12/30/22 13:56 FLUSHING AND ITCHING "LASTED FOR A FEW DAYS" Medications Home Medications Medication Instructions Recorded Confirmed Last Taken aspirin 81 mg tablet,delayed 162 mg PO PM 08/07/19 12/30/22 Unknown release (Adult Low Dose Aspirin) atenolol 50 mg tablet 50 mg PO .COMPLEX 08/07/19 12/30/22 Unknown cholecalciferol (vitamin D3) 1 dose PO QAM 08/07/19 12/30/22 Unknown coenzyme Q10 [Co Q-10] 100 mg PO HS 08/07/19 12/30/22 Unknown flaxseed oil 1 dose PO BID 08/07/19 12/30/22 Unknown gabapentin 100 mg capsule 200 mg PO PM 08/07/19 12/30/22 Unknown ginkgo biloba [Ginkoba] 1 dose PO TID 08/07/19 12/30/22 Unknown levothyroxine 75 mcg tablet 75 mcg PO QAM 08/07/19 12/30/22 Unknown (Synthroid) lutein 1 dose PO QAM 08/07/19 12/30/22 Unknown omega-3 fatty acids [Fish Oil 1 dose PO BID 08/07/19 12/30/22 Unknown Concentrate] simvastatin 10 mg tablet 10 mg PO QPM 08/07/19 12/30/22 Unknown turmeric 1 dose PO TID 08/07/19 12/30/22 Unknown meloxicam 15 mg tablet 15 mg PO DAILY #30 tabs 10/05/22 12/30/22 Unknown estradiol 0.01% (0.1 mg/gram) 0.5 g vaginal 2XWK #42.5 grams 10/06/22 12/30/22 Unknown vaginal cream ascorbic acid (vitamin C) 500 mg 500 mg PO BID 12/30/22 12/30/22 Unknown tablet (Vitamin C) glucosamine sulf dipot 1 cap PO TID 12/30/22 12/30/22 Unknown chlr,msm,chond 550 mg-C 30 mg-melinda 1 mg capsule (Glucosamine Chondroitin) multivitamin 1 tab PO QAM 12/30/22 12/30/22 Unknown denosumab 60 mg/mL subcutaneous mg subcut 01/04/23 Unknown syringe (Prolia) Past Medical History Medical History (Updated 01/04/23 @ 11:35 by Evi Cooley PA-C) Aortic regurgitation Diverticular disease GERD (gastroesophageal reflux disease) occasional, managed diet modification and prn antacid H/O varicella Lelo's thyroiditis Hyperlipidemia Hypertension controlled, stable per pt LBBB (left bundle branch block) follows with Dr. Constantine SALGADO on Pap smear of cervix 05/2008 Mitral regurgitation Nausea and vomiting after administration of anesthetic agent denies needing scop patch Osteoporosis Postmenopausal atrophic vaginitis Slow to wake up after anesthesia felt "loopy" for a week after most recent tooth extration under general Trigeminal neuralgia gabapentin for this > no recent flare up Patient denies h/o stroke, seizures, heart attack, heart failure, DM, blood clots or blood transfusions. Exercise / Class Metabolic Activity II 4-5 Yardwork/Stairs/Walk up hill (denies chest discomfort or shortness of breath with 1 FOS) Past Family History Family History Grandmother (Maternal) Stroke syndrome Mother Ischemic heart disease Hypertension Aunt Ovarian cancer maternal Brother Hypertension Dyslipidemia Prostate cancer Son Ankylosing spondylitis Father CHF (congestive heart failure) Denies family history of Breast cancer Colorectal cancer Past Surgical History Surgical History H/O dilation and curettage H/O removal of cyst hand, mouth, left breast H/O shoulder surgery left > rotator cuff H/O tubal ligation History of biopsy chest wall, Left. Dr. 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 Patient denies chest pain, shortness of breath, dyspnea on exertion, fever, chills, cough, wheezing, or palpitations. Physical Exam Vital Signs Vitals BP 110/60 P 66 TEMP 98.5 SP02 96% on RA RESP 17 Physical Full cervical extension range of motion without pain TMD 3.5 finger breadths Mallampati Score 3, small oral opening Dentition: implant lower right side and cap front upper; denies chipped or loose teeth, bridges Lungs: normal respiratory effort. Clear throughout to auscultation, no adventitious breath sounds Cardiac: regular rate and rhythm, no murmurs noted Carotid arteries: negative bruit bilat Lab Results Anesthesia Preop Results Results Anesthesia Widget: 2 WBC 7.04 K/ul (4.8-10.8) 01/04/23 Hgb 12.3 g/dl (12.0-16.0) 01/04/23 Hct 36.1 % (37.0-47.0) L 01/04/23 Plt 223 K/uL (130-400) 01/04/23 Na 140 mmol/L (136-145) 01/04/23 K 3.9 mmol/L (3.5-5.1) 01/04/23 Cl 108 mmol/L (98-107) H 01/04/23 CO2 27 mmol/L (21-32) 01/04/23 BUN 25 mg/dl (6-23) H 01/04/23 Creat 0.66 mg/dl (0.6-1.2) 01/04/23 Glucose Level 135 mg/dl (70-99(Fasting)) H 01/04/23 PT 10.7 Seconds (9.0-12.0) 01/04/23 PTT 32.9 Seconds (21.0-31.0) H 01/04/23 INR 1.0 (0.9-1.1) 01/04/23 Blood Type O Positive 01/04/23 Antibody Screen NEGATIVE 01/04/23 Testing Electrocardiogram Date: 09/07/22 Sinus bradycardia, rate 57 bpm LBBB Chest X-Ray Date: 01/04/23 1. 7 mm nodular density which projects over the thoracic spine on lateral projection and the mamie on PA projection. This finding is low suspicion and may be within the bone. However, a pulmonary nodule would be difficult to exclude. Nonemergent chest CT is recommended for further evaluation. 2. No acute cardiopulmonary findings. 3. Leftward deviation of the trachea the level the thoracic inlet. This can also be assessed on follow-up chest CT. Echocardiogram Date: 11/08/22 EF 55% Septal motion is abnormal consistent with LBBB Grade I diastolic dysfunction Moderate mitral regurgitation Mild aortic valve regurgitation Trivial anterior loculated pericardial effusion is present Stress Test Date: 11/08/22 Pharmacologic MPHR 71% Technically limited study Small anterior apical infarct without significant yasmin-infarct ischemia. Soft tissue attenuation artifact cannot be excluded due to technical limitations COVID-19 Risk Screen Screening Information COVID-19 Screen Date: 01/04/23 Exposure 21 Days Family/Household +COVID Last 21 Days: No Exposure 10 Days Any COVID Exposure Last 10 Days: No Symptoms Last 10 Days Experienced COVID Sx Last 10 Days: No + COVID 0-90 Days COVID + in Last 0-90 Days: No
[2023-01-27] MEDS ORDERED: GABAPENTIN 300 MG CAP PO SCH (06:00)
[2023-01-27] MEDS ORDERED: FAMOTIDINE 20 MG TAB PO SCH (06:00)
[2023-01-27] MEDS ORDERED: dexAMETHasone 4 MG TAB PO SCH (06:00)
[2023-01-27] MEDS ORDERED: ACETAMINOPHEN 500 MG TAB PO SCH (06:00)
[2023-01-27] MEDS ORDERED: ORTHO JOINT MIX INFIL SCH (06:00)
[2023-01-27] MEDS ORDERED: LR 500ML BOLUS, THEN 15ML/HR IV SCH (06:00)
[2023-01-27] MEDS ORDERED: TRANEXAMIC ACID 1,000 MG **IV Intra-op IV SCH (06:00)
[2023-01-27] MEDS ORDERED: TRANEXAMIC ACID 1,000 MG **IV Pre-op IV SCH (06:00)
[2023-01-27] MEDS ORDERED: ceFAZolin 2000MG 2,000 MG/15 ML SYR IV SCH (06:00)
[2023-01-27] MEDS ORDERED: LR 60ML/HR IV SCH (06:00)
[2023-01-27] MEDS ORDERED: ROPIVACAINE 0.5% 5 MG/ML 30 ML VIAL ONE (06:13)
[2023-01-27] MEDS ORDERED: BUPIVACAINE 0.5 % 5 MG/1 ML PF 10ML VIAL ONE (06:13)
--- NOTE | 2023-01-27 06:21 | History & Physical Bridge Note ---
Date of Service January 27, 2023 History & Physical Bridge Note I have examined the patient, reviewed the History & Physical and in the interval since the performance of the History & Physical I have noted the following changes of clinical significance: no changes noted
[2023-01-27] MEDS ORDERED: MIDAZOLAM HCL 1 MG/ML 2ML VIAL ONE (06:37)
[2023-01-27] MEDS ORDERED: fentaNYL citrate 100 MCG/2 ML VIAL ONE (06:37)
[2023-01-27] MEDS ORDERED: ONDANSETRON INJ 2 MG/ML 2 ML VIAL ONE (06:44)
[2023-01-27] MEDS ORDERED: PROPOFOL IV EMULSION 10 MG/ML 20 ML VIAL IV ONE (06:44)
[2023-01-27] MEDS ORDERED: ORTHO JOINT ANESTHETIC ONE (06:59)
[2023-01-27] MEDS ORDERED: ePHEDrine sulfate 50 MG/ML AMP ONE (07:31)
--- NOTE | 2023-01-27 08:05 | Operative Report ---
PG Post Operative Report Pre & Post Diagnosis Operation Date: 01/27/23 07:00 Preoperative diagnosis: Osteoarthritis of the right knee Postoperative diagnosis: Osteoarthritis of the right knee I identified the patient and participated in the time-out.: Yes Procedure Operation Date: 01/27/23 07:00 Right total knee arthroplasty Surgeon Zachary Bell DO [place] Operator Zachary Villa PA-C Estimated Blood Loss 30 Findings Consistent with Post-Op Diagnosis Specimens Right femoral and tibial bone Description of Procedure Implants used: I used a Florentin Persona total knee arthroplasty system with a size 4 standard femur, C tibia, 28 oval patella, and a size 12 medial congruent polyethylene bearing. All components were cemented in place with Biomet cement. Randy arrived [facility] for the above procedure. She was seen in the preoperative holding area and the operative extremity was identified and signed. She was given a preoperative antibiotic, TXA, a spinal anesthetic and an adductor nerve block. She was taken back to the operating room and laid on the table in supine position. She was given basic sedation. The operative knee was then prepped and draped in sterile fashion. A timeout was done, and the patient and the operative extremity was properly identified. A midline incision was made directly over the patella. Dissection was taken down to the extensor mechanism. A midvastus arthrotomy was used. The medial retinaculum was released and the fat pad was mostly excised. The knee was flexed and the ACL, PCL, and meniscus were removed. A drill was sent down the center of the femoral canal followed by an intramedullary isabel. Off that isabel a distal femoral cutting block was placed. 9 mm was resected off the distal femur at 5 of valgus. A posterior referencing AP sizing guide was then placed on the distal femur. The femur measured to be a size 4. 2 drill holes were placed in 3 of external rotation. A 4-in-1 cutting block was then impacted into place. Anterior, posterior, and chamfer cuts were then made. The proximal tibia was then exposed. An external tibial alignment guide was placed. A tibial cut guide was then anchored in place and the proximal tibia was then resected. The posterior aspect of the knee was then opened up and any additional meniscus fragments and osteophytes were removed. The tibia measured to be a size C. The tibial plate was then placed in the appropriate rotation and the tibia was drilled and punched. Trial components were then placed. I used a size 12 medial congruent polyethylene insert. The knee was brought through a full range of motion and felt to be stable. The peg holes for the femoral component were then drilled. The patella was then everted and 9 mm was resected off the posterior aspect of the patella. The patella measured to be a size 28 oval. 3 peg holes were then drilled. A trial patella was placed. The knee was once again brought through a full range of motion and felt to be stable. Trial components were then removed. The surrounding soft tissues were injected with 100 cc of an orthopedic pain control cocktail. All components were then cemented into place with Biomet cement. The final polyethylene insert was then snapped into place. Once cement was dry the tourniquet was deflated. Hemostasis was obtained. A dilute betadyne lavage was then done for 3 minutes. The joint was then irrigated with normal saline solution. The midvastus arthrotomy was then closed with #1 Vicryl suture. The skin was closed with 2-0 Vicryl, 3-0V lock suture, and leanna. A soft compressive dressing was placed. She was then transferred to a hospital bed and taken to the postanesthesia care unit in stable condition. She tolerated the procedure well. Zachary Villa PA-C, was present for the entire procedure. He was critical for patient positioning, prepping, draping, retraction exposure, wound closure and application of sterile dressing. I attest to the content of the Intraoperative Record and any orders documented therein. Any exceptions are noted below.
[2023-01-27] MEDS ORDERED: PROMETHAZINE HCL 12.5 MG in SODIUM CHLORIDE 0.9% 50 ML IV PRN (08:17)
[2023-01-27] MEDS ORDERED: HYDROmorphone INJ 2 MG/ML SYR/VIAL IV PRN (08:17)
[2023-01-27] MEDS ORDERED: ONDANSETRON INJ 2 MG/ML 2 ML VIAL IV PRN ×2 (08:17→09:36)
[2023-01-27] MEDS ORDERED: ATROPINE SULFATE 0.1 MG/ML 10ML SYR IV PRN (08:17)
[2023-01-27] MEDS ORDERED: fentaNYL citrate 100 MCG/2 ML VIAL IV PRN (08:17)
[2023-01-27] MEDS ORDERED: ePHEDrine sulfate 50 MG/ML AMP IV PRN (08:17)
[2023-01-27] MEDS ORDERED: KETOROLAC 30 MG/ML VIAL ONE (08:21)
--- NOTE | 2023-01-27 08:58 | XRay Report ---
RIGHT KNEE 2 VIEWS History: Right total knee arthroplasty. Degenerative arthritis. Postop. FINDINGS: The patient is status post a right total knee arthroplasty. The hardware is intact. No frac ture or dislocation. Skin leanna are in place. IMPRESSION: Right total knee arthroplasty. No evidence for hardware complication. ACT 112: Negative or not required by law. Electronically signed by: Lino Parekh M.D. 01/27/2023 8:49 AM
[2023-01-27] MEDS ORDERED: oxyCODONE HCL IR 5 MG TAB (IMMEDIATE RELEASE) PO PRN (09:36)
[2023-01-27] MEDS ORDERED: bisacodyL 10 MG SUPP PR PRN (09:36)
[2023-01-27] MEDS ORDERED: HYDROmorphone INJ 0.5 MG/0.5 ML SYR IV PRN (09:36)
[2023-01-27] MEDS ORDERED: MAGNESIUM HYDROXIDE SUSP 30 ML UDC PO PRN (09:36)
[2023-01-27] MEDS ORDERED: NALOXONE HCL 0.4 MG/1 ML VIAL/CARP IV PRN (09:36)
[2023-01-27] MEDS ORDERED: METOCLOPRAMIDE HCL INJ 5 MG/ML 2 ML VIAL IV PRN (09:36)
--- NOTE | 2023-01-27 10:01 | Anesthesiology Progress Note ---
Date of Service January 27, 2023 Anesthesia Post Procedure Vital Signs Vital Signs: Temp Pulse Pulse Resp BP BP Pulse Ox 01/27/23 08:55 68 11 L 118/64 98 01/27/23 08:45 69 10 L 111/57 L 94 01/27/23 09:15 36.2 C L 67 13 118/61 94 01/27/23 09:05 68 14 117/61 93 01/27/23 08:35 69 10 L 109/58 L 97 01/27/23 08:29 36.0 C L 74 13 114/58 L 100 01/27/23 05:46 36.6 C 72 20 147/68 H 98 O2 Del Method O2 Flow Rate 01/27/23 08:55 Room Air 01/27/23 08:45 Room Air 01/27/23 09:15 Room Air 01/27/23 09:05 Room Air 01/27/23 08:35 Room Air 01/27/23 08:29 Oxymask 4 01/27/23 05:46 Room Air Transfer of Care Handoff Completed per policy Notes Mental Status: alert / awake / arousable and participated in evaluation Nausea / Vomiting: adequately controlled Pain: adequately controlled Airway Patency, RR, SpO2: stable & adequate BP & HR: stable & adequate Hydration State: stable & adequate Neuraxial Anesthesia: was administered and sensory block is resolving Anesthetic Complications: no major complications apparent and Pt Satisfied with anesthetic care
[2023-01-27] MEDS: LEVOTHYROXINE SODIUM 75 MCG TABLET PO SCH (10:15)
[2023-01-27] MEDS: KETOROLAC TROMETHAMINE 15 MG/ML VIAL IV SCH ×3 (10:17→22:18)
[2023-01-27] MEDS: SODIUM CHLORIDE 0.9% 1000ML 1,000 ML IV SCH ×2 (10:17→20:23)
[2023-01-27] MEDS: MULTIVITAMIN TAB PO SCH (12:05)
[2023-01-27] MEDS: DOCUSATE SODIUM 100 MG CAP PO SCH ×2 (12:05→20:26)
[2023-01-27] MEDS: ASPIRIN 81 MG ECTAB PO SCH ×2 (12:05→20:25)
[2023-01-27] MEDS: ACETAMINOPHEN 500 MG TAB PO SCH ×2 (13:47→22:19)
[2023-01-27] MEDS: ceFAZolin 2000MG 2,000 MG/15 ML SYR IV SCH ×2 (15:18→22:23)
[2023-01-27] MEDS ORDERED: ATENOLOL 50 MG TABLET PO SCH (21:00)
[2023-01-27] MEDS ORDERED: SIMVASTATIN 10 MG TAB PO SCH (21:00)
[2023-01-27] MEDS ORDERED: SENNA 8.6 MG TAB PO SCH (21:00)
[2023-01-27] MEDS ORDERED: GABAPENTIN 100 MG CAP PO SCH (21:00)
[2023-01-28] MEDS: KETOROLAC TROMETHAMINE 15 MG/ML VIAL IV SCH ×2 (03:33→09:33)
[2023-01-28] MEDS: SODIUM CHLORIDE 0.9% 1000ML 1,000 ML IV SCH (05:44)
[2023-01-28] MEDS: LEVOTHYROXINE SODIUM 75 MCG TABLET PO SCH (06:11)
[2023-01-28] MEDS: ACETAMINOPHEN 500 MG TAB PO SCH (06:11)
[2023-01-28] MEDS: DOCUSATE SODIUM 100 MG CAP PO SCH (07:18)
[2023-01-28] MEDS: ASPIRIN 81 MG ECTAB PO SCH (07:18)
[2023-01-28] MEDS: MULTIVITAMIN TAB PO SCH (07:18)
[2023-01-28] MEDS ORDERED: dexAMETHasone 4 MG TAB PO SCH (08:00)
--- NOTE | 2023-01-28 08:16 | Orthopedic Progress Note ---
Date of Service January 28, 2023 Assessment & Plan (1) Status post right knee replacement: Overall she is doing very well. She is not having much pain in the right knee. She will be seen by physical therapy today for ambulation and range of motion exercises. The nursing staff can change her dressing after physical therapy. She is on aspirin for DVT prophylaxis. She can be discharged home later today. She will follow-up with orthopedics in 2 weeks. Cassandra Padilla was seen and examined at bedside this morning. Overall she is doing very well. She is not having much pain in the right knee. She has been up and ambulating to the bathroom. She has no complaints.. Review of Systems All systems reviewed & are unremarkable except as noted in HPI & below. Physical Exam On physical examination of the right knee, the dressing is clean and dry. Her leg is out full extension. She has active dorsiflexion plantarflexion of her right ankle.. Results & Data Results & Data Laboratory Results . Diagnostic Findings Postoperative x-rays of the right knee show the prosthesis to be in anatomic alignment without any evidence of fracture, dislocation, or loosening.. PG Care Time/CCT Total # of Minutes Spent Total Time Spent with Patient: Total time spent is greater than 50% in coordination of care (as documented) at patient's floor/unit and/or counseling patient: Coding Level of Care Code 53726 Post Operative Follow-Up Diagnoses Status post right knee replacement Z96.651
--- NOTE | 2023-01-28 08:17 | Discharge Summary ---
Date of Service January 28, 2023 Principal Diagnosis Same as "Discharge Diagnosis" noted below under Discharge Instructions. Discharge Exam On physical examination of the right knee, the dressing is clean and dry. Her leg is out full extension. She has active dorsiflexion plantarflexion of her right ankle.. Discharge Data Procedures Performed Operation Date: 01/27/23 07:00 Actual Procedures p Right Total Knee Arthroplasty(Right) - Zachary Bell DO Ordered Studies 01/27/23 05:00 US - OR guided needle placemen Routine Hospital Course (1) Status post right knee replacement: On January 27, 2023 Randy arrived at [facility] and underwent a right knee replacement without complication. She had a spinal anesthetic. Postoperatively, she was started on aspirin for DVT prophylaxis and transferred to the general orthopedic floors. Her hospital course was uneventful. On postop day 1, her vital signs were stable and her pain was well controlled. She was able to participate well with physical therapy doing ambulation and range of motion exercises. She was then discharged home. She will follow-up with orthopedics in 2 weeks. PG Care Time/CCT Total # of Minutes Spent Total Time Spent with Patient: Total time spent is greater than 50% in coordination of care (as documented) at patient's floor/unit and/or counseling patient: Discharge Plan Discharge Items Patient Disposition: Home - Home Health Services Reason For Visit: POST OP Discharge Diagnosis: Right knee replacement Activity: Per Instructions section Non-emergency contact: Surgeon Call non-emergency contact if: your wound has increased redness and your wound has increased drainage Follow-up/Referrals: Phill Qiu MD [Primary Care Provider] - Diet: Regular Addtl Attending Provider Instructions: Activity and Therapy Recommendations: * If you are using [facility] then therapy will be provided at your home until they feel you have accomplished all of your goals. * If you are using [facility] then Physical Therapy will be provided until they feel you are ready to start Outpatient Physical Therapy. * If you are not using home therapy then Outpatient Physical Therapy should start about 3-5 days from your day of surgery. Therapy will last about 6-10 weeks * It is important not to put a pillow under your knee when you are relaxing or sleeping. It is just as important to make sure you are getting your knee perfectly straight as it is to regain your knee bend. * You were shown a series of exercises in the hospital. Do these exercises three times each day including the exercises you were shown in physical therapy. * Get up and walk several times each day. For the first four weeks, try not to stand or walk for more than one hour at a time. If you do stand or walk for more than one hour, you will not hurt anything, but your leg will likely swell. * As you feel comfortable, you may change from the walker or crutches to a cane and then to independent walking. Medications: * Narcotic You will likely be sent home from the hospital with a prescription for the narcotic pain medication that worked best throughout your stay. * Aspirin Most patients will be required to take Aspirin 81mg twice a day for 6 weeks after surgery. This is obtained [id number] and a prescription is not necessary. * Other medications may be prescribed for specific circumstances. If you have any questions, please call the office at . * Resume previous home medications unless otherwise instructed TEDs/Elastic Stockings: The white elastic stockings help limit swelling and prevent blood clots from forming in your legs.~ The more you wear them, the more they work. Wear them for six weeks. Dressing Care: The dressing can be changed after physical therapy on postop day #1. Daily dry dressing changes for a few days, especially if the incision is still draining some. If the incision is not draining then you may leave the leanna open to air. If there is a little bit of drainage or if the leanna are getting stuck on your clothing then cover the incision with a dry dressing. The leanna will be removed at your 2 week follow-up appointment. Showering: You may shower 5 days from the day of surgery as long as the incision is no longer draining. You may shower with the leanna exposed. Let soapy water run over the leanna and pat them dry. Do not scrub or soak the incision. Things To Watch For: * Drainage from the incision site that occurs more than one week after your surgery. * Increased redness at the incision site. * Fever above 102 degrees Fahrenheit. * Unusual chest pain or shortness of breath. * Call [facility] at with any of the above jerry del angel Follow-Up Visit: Follow-up with Dr. Bell's PA (Zachary Villa) 2-3 weeks after your day of surgery. He will remove your leanna and answer any questions. If you have any additional questions or concerns, Dr Bell is usually in the office at the same time and will be available An appointment was probably scheduled when you signed-up for surgery in the office. If you have any questions call Office Instructions: More detailed instructions as well as Frequently Asked Questions were provided in a folder by our office when you signed-up for surgery. Please review these instructions when you get home. If you have any further questions or concerns, please feel free to call the office at [phone] Pending Studies at Discharge: No Stand-Alone Forms: My [employer], Smoking Cessation Medications and DC Order Prescriptions: New oxycodone-acetaminophen [Percocet] 5-325 mg tablet 1 tab PO Q8H PRN (Reason: pain) Qty: 30 0RF meloxicam 15 mg tablet 15 mg PO .daily Qty: 30 2RF Continued meloxicam 15 mg tablet 15 mg PO DAILY Qty: 30 2RF estradiol 0.01 % (0.1 mg/gram) cream 0.5 g PV 2XWK Qty: 42.5 1RF Rx Instructions: Insert 0.5 grams vaginally twice weekly. simvastatin 10 mg tablet 10 mg PO QPM levothyroxine [Synthroid] 75 mcg tablet 75 mcg PO QAM atenolol 50 mg tablet 50 mg PO .COMPLEX Patient Comments: 50 mg PO 25 mg in am, 50 mg at hs; Rx Instructions: 50 mg PO 25 mg in am, 50 mg at hs; gabapentin 100 mg capsule 200 mg PO PM omega-3 fatty acids 1 dose PO BID flaxseed oil 1 dose PO BID turmeric 1 dose PO TID ginkgo biloba 1 dose PO TID cholecalciferol (vitamin D3) 1 dose PO QAM lutein 1 dose PO QAM coenzyme Q10 100 mg PO HS multivitamin Tablet 1 tab PO QAM ascorbic acid (vitamin C) [Vitamin C] 500 mg Tablet 500 mg PO BID Glucosamine Chondroitin 550-30-1 mg Capsule 1 cap PO TID Prolia 60 mg/mL Syringe SUBCUT Changed aspirin [Adult Low Dose Aspirin] 81 mg tablet,delayed release (DR/EC) 81 mg PO BID 42 Days Qty: 0 0RF Admission Data Admit Date/Time: 01/27/23 08:30 Attending Provider: Zachary Bell Admit Provider: Zachary Bell Primary Care Provider: Phill Qiu
[2023-01-28] MEDS ORDERED: ATENOLOL 25 MG TABLET PO SCH (10:15)
== END 2023-01-28 11:32 | disposition home health service (06) ==
LOC: 3E 05:20 → ASU 05:20